=== PATIENT | male | born 1955 | race Caucasian/White ===

== ENCOUNTER 2022-07-04 21:01 | Inpatient (IN) ==
[2022-07-04] MEDS ORDERED: Aspirin 325 MG TABLET PO ONE (21:27)
[2022-07-04] MEDS ORDERED: *HR* Metoprolol 5 MG/5 ML VIAL IVP ONE (21:58)
[2022-07-04 21:59] LABS: Basophils # 0.1 K/mcL (0.0-0.2); Basophils % 0.4 %; Eosinophils # 0.3 K/mcL (0.0-0.6); Eosinophils % 2.1 %; Hematocrit 44.6 % (37.5-50.1); Hemoglobin 14.9 g/dL (12.9-16.9); Immature Granulocytes % 0.2 % (0-4); Lymphocytes # 2.2 K/mcL (0.6-4.6); Lymphocytes % 17.9 %; Mean Corpuscular HGB Conc 33.4 g/dL (31.6-35.5); Mean Corpuscular Hemoglobin 30.3 pg (28.0-33.3); Mean Corpuscular Volume 90.8 fL (83.0-100.0); Mean Platelet Volume 10.6 fL (9.4-12.4); Monocytes # 0.7 K/mcL (0.0-1.3); Monocytes % 5.6 %; Neutrophils # 9.2 K/mcL (1.6-8.9); Platelet Count 309 K/mcL (140-400); Red Blood Count 4.91 M/mcL (4.19-5.50); Red Cell Distribution Width 14.1 % (11.5-14.5); Segmented Neutrophils % 73.8 %; White Blood Count 12.4 K/mcL (4.3-11.1)
[2022-07-04 22:17] LABS: Calcium 8.8 mg/dL (8.6-10.3); Magnesium 1.9 mg/dL (1.6-2.6); Potassium 3.6 mEq/L (3.5-5.1)
[2022-07-04 23:11] LABS: Troponin I 0.05 ng/mL (< 0.04)
[2022-07-04 23:21] LABS: Thyroid Stimulating Hormone 1.08 mcIU/mL (0.340-5.600)
[2022-07-04] MEDS ORDERED: Melatonin 3 MG TABLET PO PRN (23:31)
[2022-07-04] MEDS ORDERED: Acetaminophen 325 MG TABLET PO PRN (23:31)
[2022-07-04] MEDS ORDERED: Naloxone 0.4 MG/ML INJ IVP PRN (23:31)
[2022-07-04] MEDS ORDERED: *HR* Enoxaparin 120 MG/0.8 ML SYRINGE SQ SCH (23:45)
[2022-07-05 02:26] LABS: Basophils # 0.1 K/mcL (0.0-0.2); Basophils % 0.7 %; Eosinophils # 0.2 K/mcL (0.0-0.6); Eosinophils % 1.3 %; Hemoglobin 14.4 g/dL (12.9-16.9); Immature Granulocytes % 0.4 % (0-4); Lymphocytes # 2.2 K/mcL (0.6-4.6); Lymphocytes % 19.3 %; Mean Corpuscular HGB Conc 33.5 g/dL (31.6-35.5); Mean Corpuscular Hemoglobin 30.8 pg (28.0-33.3); Mean Corpuscular Volume 91.9 fL (83.0-100.0); Mean Platelet Volume 10.8 fL (9.4-12.4); Monocytes # 0.6 K/mcL (0.0-1.3); Monocytes % 5.5 %; Neutrophils # 8.3 K/mcL (1.6-8.9); Platelet Count 268 K/mcL (140-400); Red Blood Count 4.68 M/mcL (4.19-5.50); Red Cell Distribution Width 14.2 % (11.5-14.5); Segmented Neutrophils % 72.8 %; White Blood Count 11.4 K/mcL (4.3-11.1)
[2022-07-05 02:35] LABS: Estimated Average Glucose 114 mg/dl; Hemoglobin A1C 5.6 %
[2022-07-05 02:43] LABS: INR 1.1; Prothrombin Time 12.5 Seconds (9.4-12.1)
[2022-07-05] MEDS ORDERED: *HR* Labetalol 20 MG/4 ML SYRINGE IVP ONE (02:57)
[2022-07-05] MEDS: *HR* Labetalol 20 MG/4 ML SYRINGE IVP PRN ×2 (03:05→20:11)
[2022-07-05 03:13] LABS: Calcium 8.7 mg/dL (8.6-10.3); Chol/HDL Ratio 3.6 (0-4.9)
[2022-07-05 08:48] LABS: Hematocrit 44.2 % (37.5-50.1); Hemoglobin 14.9 g/dL (12.9-16.9); Mean Corpuscular HGB Conc 33.7 g/dL (31.6-35.5); Mean Corpuscular Volume 92.1 fL (83.0-100.0); Mean Platelet Volume 10.7 fL (9.4-12.4); Platelet Count 262 K/mcL (140-400); Red Cell Distribution Width 14.2 % (11.5-14.5)
[2022-07-05 08:57] LABS: Heparin anti-factor XA UFH 0.49 IU/mL (0.30-0.70)
[2022-07-05 08:58] LABS: Prothrombin Time 11.6 Seconds (9.4-12.1)
[2022-07-05] MEDS ORDERED: Metoprolol XL (24 HR) Succ 50 MG TAB.ER.24H PO SCH (09:00)
[2022-07-05] MEDS: lisinopriL 20 MG TABLET PO SCH (10:00)
[2022-07-05] MEDS: Aspirin Enteric Coated 81 MG Tablet PO SCH (10:00)
[2022-07-05] MEDS ORDERED: *HR* Heparin 5,000 UNIT/ML VIAL IVP PRN (12:00)
[2022-07-05] MEDS: Heparin 25,000UNIT/250ML 1/2NS 25,000 UNIT/250 ML IV.SOLN IVC SCH (14:22)
[2022-07-05] MEDS: *HR* Heparin 5,000 UNIT/ML VIAL IVP PRN (20:07)
[2022-07-05] MEDS ORDERED: *HR* Metoprolol 5 MG/5 ML VIAL IVP ONE (23:52)
[2022-07-06] MEDS ORDERED: *HR* Metoprolol 5 MG/5 ML VIAL IVP ONE (00:21)
[2022-07-06] MEDS: Ondansetron 4 MG/2 ML VIAL IVP PRN (01:41)
[2022-07-06 02:51] LABS: Hematocrit 45.3 % (37.5-50.1); Mean Corpuscular HGB Conc 33.1 g/dL (31.6-35.5); Mean Corpuscular Hemoglobin 30.2 pg (28.0-33.3); Mean Corpuscular Volume 91.3 fL (83.0-100.0); Mean Platelet Volume 10.8 fL (9.4-12.4); Platelet Count 280 K/mcL (140-400); Red Blood Count 4.96 M/mcL (4.19-5.50); Red Cell Distribution Width 14.1 % (11.5-14.5); White Blood Count 14.9 K/mcL (4.3-11.1)
[2022-07-06 03:13] LABS: Calcium 8.7 mg/dL (8.6-10.3); Potassium 4.1 mEq/L (3.5-5.1)
[2022-07-06] MEDS: *HR* Heparin 5,000 UNIT/ML VIAL IVP PRN (04:19)
[2022-07-06] MEDS: Metoprolol XL (24 HR) Succ 50 MG TAB.ER.24H PO SCH (09:33)
[2022-07-06] MEDS: lisinopriL 20 MG TABLET PO SCH (09:34)
[2022-07-06] MEDS: Aspirin Enteric Coated 81 MG Tablet PO SCH (09:34)
[2022-07-06] MEDS: Heparin 25,000UNIT/250ML 1/2NS 25,000 UNIT/250 ML IV.SOLN IVC SCH (10:04)
[2022-07-07 01:30] LABS: Hematocrit 43.5 % (37.5-50.1); Hemoglobin 14.8 g/dL (12.9-16.9); Mean Corpuscular Hemoglobin 31.4 pg (28.0-33.3); Mean Corpuscular Volume 92.2 fL (83.0-100.0); Mean Platelet Volume 10.5 fL (9.4-12.4); Platelet Count 249 K/mcL (140-400); Red Blood Count 4.72 M/mcL (4.19-5.50); Red Cell Distribution Width 14.4 % (11.5-14.5); White Blood Count 10.4 K/mcL (4.3-11.1)
[2022-07-07 01:52] LABS: Calcium 8.7 mg/dL (8.6-10.3); Potassium 4.3 mEq/L (3.5-5.1)
[2022-07-07] MEDS: Heparin 25,000UNIT/250ML 1/2NS 25,000 UNIT/250 ML IV.SOLN IVC SCH ×2 (04:55→23:10)
[2022-07-07] MEDS: Metoprolol XL (24 HR) Succ 50 MG TAB.ER.24H PO SCH (08:56)
[2022-07-07] MEDS: Aspirin Enteric Coated 81 MG Tablet PO SCH (08:56)
[2022-07-07] MEDS: lisinopriL 20 MG TABLET PO SCH (08:56)
[2022-07-07] MEDS ORDERED: Metoprolol XL (24 HR) Succ 25 MG TAB.ER.24H PO ONE (10:38)
[2022-07-07] MEDS: *HR* Heparin 5,000 UNIT/ML VIAL IVP PRN (20:33)
[2022-07-08 04:29] LABS: Calcium 8.8 mg/dL (8.6-10.3); Potassium 4.4 mEq/L (3.5-5.1)
[2022-07-08] MEDS: Aspirin Enteric Coated 81 MG Tablet PO SCH (07:26)
[2022-07-08] MEDS: lisinopriL 20 MG TABLET PO SCH (07:26)
[2022-07-08] MEDS: Metoprolol XL (24 HR) Succ 50 MG TAB.ER.24H PO SCH (08:06)
[2022-07-08] MEDS: Heparin 25,000UNIT/250ML 1/2NS 25,000 UNIT/250 ML IV.SOLN IVC SCH (15:44)
[2022-07-08] MEDS ORDERED: *HR* Midazolam HCl 2 MG/2 ML VIAL ONE (15:48)
[2022-07-08] MEDS ORDERED: *HR* FentaNYL (PF) 100 MCG/2 ML VIAL ONE (15:48)
[2022-07-08] MEDS ORDERED: 0.9 % Sodium Chloride 2,000 ML ONE (15:49)
[2022-07-08] MEDS ORDERED: Nitroglycerin 1,000 MCG/5 ML VIAL IV ONE (15:49)
[2022-07-08] MEDS ORDERED: *HR* Heparin 10,000 UNIT/10 ML VIAL ONE (15:49)
[2022-07-08] MEDS ORDERED: Heparin 1,000 UNITS/500 mL 500 ML ONE (15:49)
[2022-07-08] MEDS ORDERED: Iopamidol - 370 200 ML INFUS..BTL ONE (15:49)
[2022-07-09] MEDS: lisinopriL 20 MG TABLET PO SCH (08:52)
[2022-07-09] MEDS: Metoprolol XL (24 HR) Succ 50 MG TAB.ER.24H PO SCH ×2 (08:52→21:20)
[2022-07-09] MEDS: Aspirin Enteric Coated 81 MG Tablet PO SCH (08:53)
[2022-07-09] MEDS: Heparin 25,000UNIT/250ML 1/2NS 25,000 UNIT/250 ML IV.SOLN IVC SCH (14:25)
[2022-07-10] MEDS: Heparin 25,000UNIT/250ML 1/2NS 25,000 UNIT/250 ML IV.SOLN IVC SCH (05:06)
[2022-07-10 09:58] LABS: ABG Base Excess -1 mEq/L (-2 to 3); ABG HCO3 22 mEq/L (21-27); ABG Oxygen Saturation 97 % (95-98); ABG PCO2 34 mmHg (35-45); ABG PH 7.42 pH Units (7.32-7.45); ABG PO2 88 mmHg (85-104); ABG TCO2 23 mEq/L (20-26)
[2022-07-10] MEDS: Metoprolol XL (24 HR) Succ 50 MG TAB.ER.24H PO SCH ×2 (10:12→21:17)
[2022-07-10] MEDS: Aspirin Enteric Coated 81 MG Tablet PO SCH (10:13)
[2022-07-10] MEDS: lisinopriL 20 MG TABLET PO SCH (10:17)
[2022-07-10 15:28] LABS: Bilirubin,Urine Negative (Negative); Blood,Urine Negative (Negative); Clarity,Urine Clear (Clear); Color,Urine Yellow (Yellow); Glucose,Urine (UA) Normal (Normal); Ketones,Urine Negative (Negative); Leukocyte Esterase,Urine Negative (Negative); Nitrite,Urine Negative (Negative); Protein,Urine Negative (Neg-Trace); Specific Gravity,Urine 1.017 (1.010-1.025)
[2022-07-10] MEDS: Chlorhexidine Rinse 15 ML MOUTHWASH MM SCH (21:17)
[2022-07-11 02:53] LABS: Basophils # 0.1 K/mcL (0.0-0.2); Basophils % 0.8 %; Eosinophils # 0.3 K/mcL (0.0-0.6); Eosinophils % 2.4 %; Hematocrit 46.9 % (37.5-50.1); Hemoglobin 15.4 g/dL (12.9-16.9); Immature Granulocytes % 0.5 % (0-4); Lymphocytes % 28.8 %; Mean Corpuscular HGB Conc 32.8 g/dL (31.6-35.5); Mean Corpuscular Hemoglobin 30.7 pg (28.0-33.3); Mean Corpuscular Volume 93.6 fL (83.0-100.0); Mean Platelet Volume 10.8 fL (9.4-12.4); Monocytes # 0.8 K/mcL (0.0-1.3); Monocytes % 7.3 %; Neutrophils # 6.3 K/mcL (1.6-8.9); Platelet Count 265 K/mcL (140-400); Red Blood Count 5.01 M/mcL (4.19-5.50); Red Cell Distribution Width 14.1 % (11.5-14.5); Segmented Neutrophils % 60.2 %; White Blood Count 10.5 K/mcL (4.3-11.1)
[2022-07-11 02:59] LABS: INR 1.1; Prothrombin Time 12.7 Seconds (9.4-12.1)
[2022-07-11 03:02] LABS: Activated Partial Thrombo Time 35.3 Seconds (26.0-36.0)
[2022-07-11 03:16] LABS: Calcium 9.4 mg/dL (8.6-10.3); Potassium 5.1 mEq/L (3.5-5.1)
[2022-07-11] MEDS: Chlorhexidine Rinse 15 ML MOUTHWASH MM SCH ×2 (05:14→20:07)
[2022-07-11] MEDS ORDERED: DOBUTamine 1,000 MG/250 ML BAG ONE (05:44)
[2022-07-11] MEDS ORDERED: Acetaminophen IV 1,000 MG/100 ML BAG IVPB ONE ×2 (05:44→10:00)
[2022-07-11] MEDS ORDERED: NiCARdipine 2.5 MG/10 ML Syringe IVPB ONE (05:44)
[2022-07-11] MEDS ORDERED: *HR* Midazolam HCl 5 MG/5 ML VIAL IVP ONE (05:47)
[2022-07-11] MEDS ORDERED: *HR* FentaNYL (PF) 250 MCG/5 ML VIAL ONE ×2 (05:48→08:55)
[2022-07-11] MEDS ORDERED: *HR* Propofol 200 MG/20 ML VIAL IVP ONE (05:48)
[2022-07-11] MEDS ORDERED: Famotidine 20 MG/2 ML VIAL ONE (05:49)
[2022-07-11] MEDS ORDERED: *HR* Magnesium Sulfate 1 GM/2 ML VIAL ONE (05:49)
[2022-07-11] MEDS ORDERED: Tranexamic Acid 1,000 MG/10 ML VIAL ONE (05:49)
[2022-07-11] MEDS ORDERED: *HR* Rocuronium Bromide 50 MG/5 ML VIAL ONE ×2 (05:49→08:54)
[2022-07-11] MEDS ORDERED: Lidocaine 2% Syringe 100 MG/5 ML ONE (05:49)
[2022-07-11] MEDS ORDERED: Aspirin 81 MG TAB.CHEW PO ONE (06:00)
[2022-07-11] MEDS ORDERED: CeFAZolin Syr 3,000MG/30 ML 3,000 MG/30 ML SYRINGE IVPB ONE (06:00)
[2022-07-11] MEDS ORDERED: Papaverine 60 MG/2 ML VIAL IVP ONE ×2 (06:11→10:45)
[2022-07-11] MEDS ORDERED: Buckersberg's Blood Cardioplegia PF ONE (07:00)
[2022-07-11] MEDS ORDERED: del Nido Cardioplegia Solution PF ONE ×2 (07:00)
[2022-07-11] MEDS ORDERED: Norepinephrine 4 MG in 0.9 % Sodium Chloride 250 ML IVC PRN (07:00)
[2022-07-11] MEDS ORDERED: Heparin 15,000 UNIT in 0.9 % Sodium Chloride 500 ML IR ONE (07:00)
[2022-07-11 08:25] LABS: ABG Base Excess -3 mEq/L (-2 to 3); ABG Chloride 106 mEq/L (98-107); ABG Glucose 96 mg/dL (60-95); ABG HCO3 23 mEq/L (21-27); ABG Ionized Calcium 1.17 mmol/L (1.15-1.35); ABG Oxygen Saturation 100 % (95-98); ABG PCO2 40 mmHg (35-45); ABG PH 7.36 pH Units (7.32-7.45); ABG PO2 433 mmHg (85-104); ABG TCO2 24 mEq/L (20-26)
[2022-07-11] MEDS ORDERED: Amiodarone Premix 360 MG/200 ML BAG IVC ONE ×2 (08:42→14:39)
[2022-07-11] MEDS ORDERED: *HR* Metoprolol 5 MG/5 ML VIAL IVP ONE (09:04)
[2022-07-11] MEDS ORDERED: *HR* Amiodarone 150 MG/3 ML VIAL IVPB ONE (10:01)
[2022-07-11 10:03] LABS: ABG Base Excess -3 mEq/L (-2 to 3); ABG Chloride 103 mEq/L (98-107); ABG Glucose 198 mg/dL (60-95); ABG HCO3 23 mEq/L (21-27); ABG Oxygen Saturation 99 % (95-98); ABG PCO2 47 mmHg (35-45); ABG PO2 148 mmHg (85-104); ABG TCO2 25 mEq/L (20-26)
[2022-07-11] MEDS ORDERED: Calcium Gluconate 1,000 MG/10 ML VIAL ONE ×2 (10:03→11:11)
[2022-07-11] MEDS ORDERED: Ondansetron 4 MG/2 ML VIAL ONE (11:06)
[2022-07-11] MEDS ORDERED: Protamine Sulfate 250 MG/25 ML VIAL IVP ONE (11:11)
[2022-07-11] MEDS ORDERED: Protamine Sulfate 50 MG/5 ML VIAL IVP ONE (11:11)
[2022-07-11] MEDS ORDERED: niCARdipine 20 MG/200 ML MLS IVC ONE (11:26)
[2022-07-11] MEDS ORDERED: *HR* Dextrose 50 % in Water (Syg) 50 ML SYRINGE IVP PRN (11:53)
[2022-07-11] MEDS ORDERED: Potassium Chloride 40 MEQ/200 ML BAG IVPB PRN (11:53)
[2022-07-11] MEDS: Amiodarone Premix 360 MG/200 ML BAG IVC SCH ×2 (12:00→17:48)
[2022-07-11 12:13] LABS: ABG Base Excess -5 mEq/L (-2 to 3); ABG HCO3 22 mEq/L (21-27); ABG Oxygen Saturation 96 % (95-98); ABG PCO2 44 mmHg (35-45); ABG PO2 92 mmHg (85-104); ABG TCO2 23 mEq/L (20-26)
[2022-07-11] MEDS: Ipratropium/Albuterol Neb 3 ML IH SCH ×4 (12:16→23:26)
[2022-07-11 12:21] LABS: Basophils # 0.1 K/mcL (0.0-0.2); Basophils % 0.4 %; Eosinophils # 0.2 K/mcL (0.0-0.6); Eosinophils % 0.8 %; Hematocrit 45.1 % (37.5-50.1); Hemoglobin 15.1 g/dL (12.9-16.9); Immature Granulocytes % 1.3 % (0-4); Lymphocytes # 2.9 K/mcL (0.6-4.6); Lymphocytes % 13.3 %; Mean Corpuscular HGB Conc 33.5 g/dL (31.6-35.5); Mean Corpuscular Hemoglobin 31.3 pg (28.0-33.3); Mean Corpuscular Volume 93.4 fL (83.0-100.0); Mean Platelet Volume 10.2 fL (9.4-12.4); Monocytes # 1.1 K/mcL (0.0-1.3); Monocytes % 5.1 %; Neutrophils # 17.4 K/mcL (1.6-8.9); Platelet Count 311 K/mcL (140-400); Red Blood Count 4.83 M/mcL (4.19-5.50); Red Cell Distribution Width 14.1 % (11.5-14.5); Segmented Neutrophils % 79.1 %
[2022-07-11] MEDS: *HR* FentaNYL (PF) 100 MCG/2 ML VIAL IVP PRN ×2 (12:24→14:20)
[2022-07-11] MEDS: *HR* OxyCODONE/APAP 5/325 TABLET PO PRN (12:24)
[2022-07-11 12:29] LABS: INR 1.2; Prothrombin Time 13.7 Seconds (9.4-12.1)
[2022-07-11] MEDS: Insulin Regular, Human 100 UNIT/ML IV PRN ×5 (12:30→16:00)
[2022-07-11 12:32] LABS: Activated Partial Thrombo Time 37.6 Seconds (26.0-36.0)
[2022-07-11 12:36] LABS: Calcium 9.1 mg/dL (8.6-10.3); Magnesium 2.1 mg/dL (1.6-2.6); Potassium 3.9 mEq/L (3.5-5.1)
[2022-07-11] MEDS: niCARdipine 20 MG/200 ML MLS IVC SCH ×2 (12:40→15:48)
[2022-07-11] MEDS: Aspirin Enteric Coated 81 MG Tablet PO SCH (12:51)
[2022-07-11] MEDS: Ketorolac 30 MG/ML VIAL IVP SCH ×2 (15:19→21:07)
[2022-07-11] MEDS: ceFAZolin 3,000 MG in 0.9 % Sodium Chloride 100 ML IVPB SCH ×2 (15:19→23:17)
[2022-07-11] MEDS: Ondansetron 4 MG/2 ML VIAL IVP PRN (15:34)
[2022-07-11] MEDS: Albumin Human 5% 12.5 GM/250 ML IV.SOLN IVPB PRN ×2 (16:16→16:48)
[2022-07-11] MEDS ORDERED: Amiodarone 450 MG in 0.9 % Sodium Chloride Excel Bg 241 ML IVC SCH (20:31)
[2022-07-12] MEDS: *HR* FentaNYL (PF) 100 MCG/2 ML VIAL IVP PRN ×3 (00:17→06:50)
[2022-07-12] MEDS: niCARdipine 20 MG/200 ML MLS IVC SCH ×7 (00:45→21:03)
[2022-07-12 03:38] LABS: Basophils % 0.1 %; Hematocrit 40.4 % (37.5-50.1); Immature Granulocytes % 0.5 % (0-4); Lymphocytes # 1.2 K/mcL (0.6-4.6); Lymphocytes % 6.1 %; Mean Corpuscular HGB Conc 33.2 g/dL (31.6-35.5); Mean Corpuscular Hemoglobin 30.2 pg (28.0-33.3); Mean Platelet Volume 10.4 fL (9.4-12.4); Monocytes # 1.3 K/mcL (0.0-1.3); Neutrophils # 16.3 K/mcL (1.6-8.9); Platelet Count 267 K/mcL (140-400); Red Blood Count 4.44 M/mcL (4.19-5.50); Segmented Neutrophils % 86.3 %; White Blood Count 18.9 K/mcL (4.3-11.1)
[2022-07-12 03:40] LABS: Hemoglobin 13.4 g/dL (12.9-16.9)
[2022-07-12 03:48] LABS: INR 1.2
[2022-07-12 03:51] LABS: Activated Partial Thrombo Time 33.4 Seconds (26.0-36.0)
[2022-07-12] MEDS: Ipratropium/Albuterol Neb 3 ML IH SCH ×6 (03:52→23:22)
[2022-07-12 03:57] LABS: Calcium 8.7 mg/dL (8.6-10.3); Magnesium 2.3 mg/dL (1.6-2.6); Potassium 4.6 mEq/L (3.5-5.1)
[2022-07-12] MEDS: Chlorhexidine Rinse 15 ML MOUTHWASH MM SCH ×2 (07:51→21:03)
[2022-07-12] MEDS: Pantoprazole 40 MG VIAL IVP SCH (07:51)
[2022-07-12] MEDS: Aspirin Enteric Coated 81 MG Tablet PO SCH (07:51)
[2022-07-12] MEDS ORDERED: Albumin Human 5% 12.5 GM/250 ML IV.SOLN IVPB ONE (08:12)
[2022-07-12] MEDS ORDERED: Amiodarone Premix 150 MG/100 ML BAG IVPB ONE (10:12)
[2022-07-12] MEDS ORDERED: Amiodarone 450 MG in 0.9 % Sodium Chloride Excel Bg 241 ML IVC ONE (10:12)
[2022-07-12] MEDS ORDERED: Amiodarone Premix 360 MG/200 ML BAG IVC ONE (10:19)
[2022-07-12] MEDS ORDERED: Aspirin Enteric Coated 81 MG Tablet PO ONE (16:00)
[2022-07-12] MEDS: Amiodarone Premix 360 MG/200 ML BAG IVC SCH ×2 (17:33→22:35)
[2022-07-12] MEDS: *HR* OxyCODONE/APAP 5/325 TABLET PO PRN (23:47)
[2022-07-13] MEDS: niCARdipine 20 MG/200 ML MLS IVC SCH ×6 (01:35→21:53)
[2022-07-13] MEDS: Ipratropium/Albuterol Neb 3 ML IH SCH ×6 (04:00→23:40)
[2022-07-13] MEDS: Amiodarone Premix 360 MG/200 ML BAG IVC SCH ×3 (04:03→16:22)
[2022-07-13] MEDS: *HR* OxyCODONE/APAP 5/325 TABLET PO PRN ×4 (04:04→21:15)
[2022-07-13 05:00] LABS: Basophils % 0.1 %; Eosinophils % 0.1 %; Hematocrit 38.7 % (37.5-50.1); Hemoglobin 12.9 g/dL (12.9-16.9); Immature Granulocytes % 0.5 % (0-4); Lymphocytes % 12.3 %; Mean Corpuscular HGB Conc 33.3 g/dL (31.6-35.5); Mean Corpuscular Hemoglobin 30.9 pg (28.0-33.3); Mean Corpuscular Volume 92.6 fL (83.0-100.0); Mean Platelet Volume 10.9 fL (9.4-12.4); Monocytes # 1.6 K/mcL (0.0-1.3); Monocytes % 9.6 %; Neutrophils # 12.8 K/mcL (1.6-8.9); Platelet Count 224 K/mcL (140-400); Red Blood Count 4.18 M/mcL (4.19-5.50); Red Cell Distribution Width 14.6 % (11.5-14.5); Segmented Neutrophils % 77.4 %; White Blood Count 16.5 K/mcL (4.3-11.1)
[2022-07-13 05:21] LABS: Calcium 8.7 mg/dL (8.6-10.3); Potassium 4.5 mEq/L (3.5-5.1)
[2022-07-13] MEDS: Chlorhexidine Rinse 15 ML MOUTHWASH MM SCH ×2 (07:34→21:13)
[2022-07-13] MEDS: Aspirin Enteric Coated 81 MG Tablet PO SCH (08:52)
[2022-07-13] MEDS: Pantoprazole 40 MG VIAL IVP SCH (08:52)
[2022-07-13] MEDS ORDERED: Metoclopramide 10 MG/2 ML VIAL IVP PRN (10:40)
[2022-07-13] MEDS ORDERED: Metoclopramide 10 MG/2 ML VIAL IVP SCH (12:00)
[2022-07-13] MEDS: Famotidine 20 MG TABLET PO SCH (21:13)
[2022-07-14] MEDS: *HR* OxyCODONE/APAP 5/325 TABLET PO PRN ×2 (03:38→08:38)
[2022-07-14] MEDS: Amiodarone Premix 360 MG/200 ML BAG IVC SCH ×2 (03:39→09:12)
[2022-07-14] MEDS: Ipratropium/Albuterol Neb 3 ML IH SCH ×6 (03:41→23:24)
[2022-07-14 04:25] LABS: Basophils % 0.3 %; Eosinophils # 0.1 K/mcL (0.0-0.6); Eosinophils % 0.8 %; Hematocrit 41.3 % (37.5-50.1); Hemoglobin 13.6 g/dL (12.9-16.9); Immature Granulocytes % 0.5 % (0-4); Lymphocytes % 13.8 %; Mean Corpuscular HGB Conc 32.9 g/dL (31.6-35.5); Mean Corpuscular Hemoglobin 30.4 pg (28.0-33.3); Mean Corpuscular Volume 92.2 fL (83.0-100.0); Mean Platelet Volume 10.9 fL (9.4-12.4); Monocytes # 1.3 K/mcL (0.0-1.3); Monocytes % 8.8 %; Platelet Count 240 K/mcL (140-400); Red Blood Count 4.48 M/mcL (4.19-5.50); Red Cell Distribution Width 14.7 % (11.5-14.5); Segmented Neutrophils % 75.8 %; White Blood Count 14.6 K/mcL (4.3-11.1)
[2022-07-14] MEDS: niCARdipine 20 MG/200 ML MLS IVC SCH ×4 (04:35→12:35)
[2022-07-14 04:43] LABS: Calcium 9.1 mg/dL (8.6-10.3); Potassium 4.3 mEq/L (3.5-5.1)
[2022-07-14] MEDS: Metoprolol XL (24 HR) Succ 50 MG TAB.ER.24H PO SCH (07:19)
[2022-07-14] MEDS: Chlorhexidine Rinse 15 ML MOUTHWASH MM SCH (08:38)
[2022-07-14] MEDS: Aspirin Enteric Coated 81 MG Tablet PO SCH (08:38)
[2022-07-14] MEDS: Famotidine 20 MG TABLET PO SCH (08:38)
[2022-07-14 09:23] LABS: ABG Base Excess -4 mEq/L (-2 to 3); ABG Chloride 101 mEq/L (98-107); ABG Glucose 197 mg/dL (60-95); ABG HCO3 23 mEq/L (21-27); ABG Oxygen Saturation 100 % (95-98); ABG PCO2 46 mmHg (35-45); ABG PH 7.31 pH Units (7.32-7.45); ABG PO2 310 mmHg (85-104); ABG TCO2 24 mEq/L (20-26)
[2022-07-14] MEDS ORDERED: Metoclopramide 10 MG/2 ML VIAL IVP PRN (13:08)
[2022-07-14] MEDS ORDERED: *HR* Dextrose 50 % in Water (Syg) 50 ML SYRINGE IVP PRN (13:08)
[2022-07-14] MEDS ORDERED: *HR* OxyCODONE/APAP 5/325 TABLET PO PRN (13:08)
[2022-07-14] MEDS ORDERED: Acetaminophen 325 MG TABLET PO PRN (13:08)
[2022-07-14] MEDS ORDERED: Potassium Chloride 40 MEQ/200 ML BAG IVPB PRN (13:08)
[2022-07-14] MEDS ORDERED: Melatonin 3 MG TABLET PO PRN (13:08)
[2022-07-14] MEDS ORDERED: Naloxone 0.4 MG/ML INJ IVP PRN (13:08)
[2022-07-14] MEDS ORDERED: Amiodarone Premix 360 MG/200 ML BAG IVC SCH (13:08)
[2022-07-14] MEDS ORDERED: Ondansetron 4 MG/2 ML VIAL IVP PRN (13:08)
[2022-07-14] MEDS ORDERED: *HR* Heparin 5,000 UNIT/ML VIAL IVP PRN ×2 (14:23)
[2022-07-14] MEDS ORDERED: Heparin 25,000UNIT/250ML 1/2NS 25,000 UNIT/250 ML IV.SOLN IVC SCH (14:30)
[2022-07-14] MEDS: *HR* Amiodarone 200 MG TABLET PO SCH ×2 (17:17→19:54)
[2022-07-14 17:41] LABS: Hemoglobin 14.3 g/dL (12.9-16.9); Mean Corpuscular HGB Conc 33.3 g/dL (31.6-35.5); Mean Corpuscular Hemoglobin 30.5 pg (28.0-33.3); Mean Corpuscular Volume 91.7 fL (83.0-100.0); Mean Platelet Volume 10.5 fL (9.4-12.4); Platelet Count 235 K/mcL (140-400); Red Blood Count 4.69 M/mcL (4.19-5.50); Red Cell Distribution Width 14.6 % (11.5-14.5); White Blood Count 13.5 K/mcL (4.3-11.1)
[2022-07-14 17:51] LABS: INR 1.1; Prothrombin Time 12.8 Seconds (9.4-12.1)
[2022-07-14] MEDS ORDERED: *HR* Heparin 5,000 UNIT/ML VIAL SQ SCH (18:00)
[2022-07-14 18:13] LABS: Heparin anti-factor XA UFH 0.19 IU/mL (0.30-0.70)
[2022-07-14] MEDS ORDERED: NON-FORMULARY MEDICATION 1 EACH EACH (Atorvastatin Calcium [Lipitor] 80 MG Tablet) PO SCH (21:00)
[2022-07-14] MEDS ORDERED: Famotidine 20 MG TABLET PO SCH (21:00)
[2022-07-15] MEDS: Ipratropium/Albuterol Neb 3 ML IH SCH ×6 (04:18→23:37)
[2022-07-15] MEDS ORDERED: Ondansetron 4 MG/2 ML VIAL IVP PRN (08:15)
[2022-07-15] MEDS ORDERED: Naloxone 0.4 MG/ML INJ IVP PRN (08:15)
[2022-07-15] MEDS ORDERED: *HR* Dextrose 50 % in Water (Syg) 50 ML SYRINGE IVP PRN (08:15)
[2022-07-15] MEDS ORDERED: Potassium Chloride 40 MEQ/200 ML BAG IVPB PRN (08:15)
[2022-07-15] MEDS ORDERED: Metoclopramide 10 MG/2 ML VIAL IVP PRN (08:15)
[2022-07-15] MEDS ORDERED: Acetaminophen 325 MG TABLET PO PRN (08:15)
[2022-07-15] MEDS ORDERED: Melatonin 3 MG TABLET PO PRN (08:15)
[2022-07-15] MEDS ORDERED: *HR* Heparin 5,000 UNIT/ML VIAL IVP PRN ×2 (08:15)
[2022-07-15] MEDS ORDERED: *HR* OxyCODONE/APAP 5/325 TABLET PO PRN (08:15)
[2022-07-15] MEDS: lisinopriL 20 MG TABLET PO SCH (08:53)
[2022-07-15] MEDS: Aspirin Enteric Coated 81 MG Tablet PO SCH (08:53)
[2022-07-15] MEDS: *HR* Amiodarone 200 MG TABLET PO SCH ×2 (08:53→20:50)
[2022-07-15] MEDS: Famotidine 20 MG TABLET PO SCH ×2 (08:55→20:51)
[2022-07-15] MEDS ORDERED: Aspirin Enteric Coated 81 MG Tablet PO SCH (09:00)
[2022-07-15] MEDS ORDERED: lisinopriL 20 MG TABLET PO SCH (09:00)
[2022-07-15] MEDS: Metoprolol XL (24 HR) Succ 50 MG TAB.ER.24H PO SCH (20:51)
[2022-07-15] MEDS: Heparin 25,000UNIT/250ML 1/2NS 25,000 UNIT/250 ML IV.SOLN IVC SCH ×3 (23:53→23:56)
[2022-07-16 02:54] LABS: Hematocrit 39.7 % (37.5-50.1); Hemoglobin 13.3 g/dL (12.9-16.9); Mean Corpuscular HGB Conc 33.5 g/dL (31.6-35.5); Mean Corpuscular Hemoglobin 30.5 pg (28.0-33.3); Mean Corpuscular Volume 91.1 fL (83.0-100.0); Mean Platelet Volume 10.7 fL (9.4-12.4); Platelet Count 266 K/mcL (140-400); Red Blood Count 4.36 M/mcL (4.19-5.50); Red Cell Distribution Width 14.3 % (11.5-14.5); White Blood Count 12.1 K/mcL (4.3-11.1)
[2022-07-16 03:13] LABS: Calcium 8.9 mg/dL (8.6-10.3); Potassium 4.8 mEq/L (3.5-5.1)
[2022-07-16] MEDS: Ipratropium/Albuterol Neb 3 ML IH SCH ×3 (04:14→11:11)
[2022-07-16 06:09] VITALS: BP 92/59
[2022-07-16] MEDS: Aspirin Enteric Coated 81 MG Tablet PO SCH (07:49)
[2022-07-16] MEDS: lisinopriL 20 MG TABLET PO SCH (07:49)
[2022-07-16] MEDS: *HR* Amiodarone 200 MG TABLET PO SCH (07:50)
[2022-07-16] MEDS: Famotidine 20 MG TABLET PO SCH (07:50)
[2022-07-16] MEDS: Metoprolol XL (24 HR) Succ 50 MG TAB.ER.24H PO SCH (07:50)
[2022-07-16 08:29] VITALS: TEMP 96.7
[2022-07-16 09:08] VITALS: PULSE 96
[2022-07-16 15:11] VITALS: O2SAT 96
[2022-07-16] MEDS ORDERED: *HR* Rivaroxaban 10 MG TABLET PO SCH (17:00)
== END 2022-07-16 11:34 | disposition home or self-care (01) | DRG 234 ==
LOC: EMEROOARM 21:01 → 2NENU 21:01 → SUATTDRO 07-05 11:26 → ICNU 07-11 09:44
PROVIDERS: ADMIT Internal Medicine; ATTEND Internal Medicine